=== PATIENT | female | born 1990 | race American Indian/Alaskan Native ===

== ENCOUNTER 2020-04-07 20:20 | Outpatient (CLI) | payer OTHER ==
[2020-04-07 21:21] VITALS: BP 142/65
== END 2020-04-07 22:26 | disposition home or self-care (01) ==
LOC: TRG 20:20 → APU 20:21 → TRG 22:26
PROVIDERS: ATTEND Obstetrics & Gynecology
DX: O47.02 False labor before 37 completed weeks of gestation, second trimester (principal); Z3A.24 24 weeks gestation of pregnancy
CPT/HCPCS: 59025